=== PATIENT | female | born 1940 | race Caucasian/White ===

== ENCOUNTER 2019-03-08 12:52 | Emergency (ER) | payer MEDICARE ==
[2019-03-08 13:18] VITALS: BP 126/72; PULSE 77; RESP 18; TEMP 97.8
--- NOTE | 2019-03-08 14:17 | ED ---
ENT HPI - General Chief complaint: ENT Stated complaint: Nose swelling Time Seen by Provider: 03/08/19 13:47 Source: patient Mode of arrival: ambulatory Limitations: no limitations - History of Present Illness Initial comments: Patient is a 78-year-old female presenting to the emergency Department with complaints of left-sided nostril pain and swelling for the past 3 days. Patient denies any trauma or injuries to her nose. Patient denies fever, chills, nausea, vomiting. No previous history of facial surgeries. Patient has no other symptom past medical history. Patient states she does see an ENT intermittently for chronic sinus infections. Patient states this is not feeling that. Patient has no other complaints at this time. Upon arrival to ER, vital signs are stable. - Related Data Previous Rx's Medication Instructions Recorded Cephalexin [Keflex] 500 mg PO Q6HR 5 Days #20 cap 03/08/19 Allergies Allergy/AdvReac Type Severity Reaction Status Date / Time No Known Allergies Allergy Verified 03/08/19 13:18 Review of Systems ROS Statement: Those systems with pertinent positive or pertinent negative responses have been documented in the HPI. ROS Other: All systems not noted in ROS Statement are negative. Past Medical History Past Medical History: No Reported History History of Any Multi-Drug Resistant Organisms: None Reported Past Surgical History: Tonsillectomy Past Psychological History: No Psychological Hx Reported Smoking Status: Never smoker Past Alcohol Use History: None Reported Past Drug Use History: None Reported General Exam - General Exam Comments Initial Comments: GENERAL: Well-appearing, well-nourished and in no acute distress. HEAD: Atraumatic, normocephalic. EYES: Pupils equal round and reactive to light, extraocular movements intact, sclera anicteric, conjunctiva are normal. ENT: TMs normal, nares patent. Small pustule inside left nostril, mild surrounding edema of the left nostril and left upper cheek. No erythema. oropharynx clear without exudates. Moist mucous membranes. NECK: Normal range of motion, supple without lymphadenopathy or JVD. LUNGS: Breath sounds clear to auscultation bilaterally and equal. No wheezes rales or rhonchi. HEART: Regular rate and rhythm without murmurs, rubs or gallops. ABDOMEN: Soft, nontender, normoactive bowel sounds. No guarding, no rebound. No masses appreciated. : Deferred EXTREMITIES: Normal range of motion, no pitting or edema. No clubbing or cyanosis. NEUROLOGICAL: Cranial nerves II through XII grossly intact. Normal speech, normal gait. PSYCH: Normal mood, normal affect. SKIN: Warm, Dry, normal turgor, no rashes or lesions noted. Limitations: no limitations Course Vital Signs 03/08/19 03/08/19 13:15 14:29 Temperature 97.8 F 97.8 F Pulse Rate 77 77 Respiratory 18 18 Rate Blood Pressure 126/72 126/72 O2 Sat by Pulse 97 97 Oximetry Medical Decision Making - Medical Decision Making Patient is a 78-year-old female with complaints of left-sided nostril pain and mild swelling started 2 days ago. Patient denies fever, chills, trauma to her nose. Patient does see an ENT for chronic sinusitis but states this feels differently. On exam patient does have a pustule present on the inside left nostril as well as mild swelling on the outside of the left nose into the left orbit area. There is no erythema present on the face. There is some mild tenderness in the left nostril. We discussed with patient that her symptoms are secondary to a pustule in the nostril. Patient will be started on antibiotics to prevent infection. Patient will continue to use warm compresses to the nose and will follow up with ENT as needed if symptoms do not resolve. Patient is stable for discharge at this time and patient is in agreement with plan of care. Return parameters were discussed with the patient she verbalized understanding. Case discussed with physician. Disposition Clinical Impression: Pustule of nostril, Nasal pain Disposition: HOME SELF-CARE Condition: Stable Instructions (If sedation given, give patient instructions): Warm Compress or Soak (ED) Additional Instructions: Please return to the Emergency Department if symptoms worsen or any other concerns. Follow-up with ENT as discussed if symptoms persist. Take antibiotics as discussed. Use warm compresses on the nose as well. Prescriptions: Cephalexin [Keflex] 500 mg PO Q6HR 5 Days #20 cap Is patient prescribed a controlled substance at d/c from ED?: No Referrals: Isabel Farley MD [Primary Care Provider] - 1-2 days Sameer Lanza DO [REFERRING] - 1-2 days
== END 2019-03-08 14:32 | disposition home or self-care (01) ==
LOC: EC 12:52
DX: L08.9 Local infection of the skin and subcutaneous tissue, unspecified (principal); J34.89 Other specified disorders of nose and nasal sinuses; J32.9 Chronic sinusitis, unspecified
CPT/HCPCS: 99283

== ENCOUNTER 2021-12-17 11:04 | Inpatient (IN) | payer MEDICARE ==
[2021-12-17] MEDS ORDERED: ONDANSETRON 4 MG/2 ML VIAL IVP STA (11:39)
[2021-12-17] MEDS ORDERED: SODIUM CHLORIDE 0.9% 1,000 ML IV STA (11:39)
--- NOTE | 2021-12-17 12:09 | CT ---
EXAMINATION TYPE: CT brain wo con DATE OF EXAM: 12/17/2021 COMPARISON: None HISTORY: Dizziness, N/V CT DLP: 1099.4 mGycm Automated exposure control for dose reduction was used. FINDINGS: Mild to moderate generalized degenerative change. Low-attenuation in the white matter is nonspecific. No acute hemorrhage or mass effect. No midline shift. Calvarium is intact. Sinuses are clear. Orbits are symmetric. The sella turcica has a normal appearan ce. Craniocervical junction is maintained. IMPRESSION: DEGENERATIVE AND NONSPECIFIC WHITE MATTER CHANGES MOST TYPICAL OF REMOTE ISCHEMIA.
--- NOTE | 2021-12-17 12:30 | XR ---
EXAMINATION TYPE: XR chest 2V DATE OF EXAM: 12/17/2021 COMPARISON: None INDICATION: Dizziness and acute mental status changes TECHNIQUE: Frontal and lateral views of the chest are obtained. FINDINGS: The heart size is normal. The pulmonary vasculature is normal. The lungs are clear. IMPRESSION: 1. No acute pulmonary process.
[2021-12-17] MEDS: MECLIZINE 12.5 MG TAB PO STA ×2 (12:44→14:17)
[2021-12-17 12:54] LABS: Basophils # (A) 0.1 k/uL (0-0.2); Basophils % (A) 1 %; Eosinophils # (A) 0.1 k/uL (0-0.7); Eosinophils % (A) 1 %; HCT 42.6 % (34.0-46.0); HGB 14.3 gm/dL (11.4-16.0); Lymphocytes # (A) 0.9 k/uL (1.0-4.8); Lymphocytes % (A) 11 %; MCH 31.3 pg (25.0-35.0); MCHC 33.6 g/dL (31.0-37.0); MCV 92.9 fL (80.0-100.0); Mean Platelet Volume 7.6; Monocytes # (A) 0.4 k/uL (0-1.0); Monocytes % (A) 4 %; Neutrophils # (A) 7.2 k/uL (1.3-7.7); Neutrophils % (A) 83 %; Platelet Count 228 k/uL (150-450); RBC 4.59 m/uL (3.80-5.40); WBC 8.7 k/uL (3.8-10.6)
[2021-12-17 13:01] LABS: Albumin 3.9 g/dL (3.5-5.0); Potassium 4.3 mmol/L (3.5-5.1); Total Bilirubin 0.6 mg/dL (0.2-1.3); Total Protein 6.4 g/dL (6.3-8.2)
--- NOTE | 2021-12-17 13:12 | ED ---
General Adult HPI - General Chief complaint: Dizziness Stated complaint: Nausea,Vomiting Time Seen by Provider: 12/17/21 11:18 Source: patient, EMS, RN notes reviewed Mode of arrival: EMS Limitations: no limitations - History of Present Illness Initial comments: 81-year-old female presents emergency from via EMS chief complaint of dizziness. Patient woke up this morning sat up quickly states room a sprain. Patient states is very nauseated, feels weak. Family states that she seems to be lethargic. Patient does not have any confusion currently. Patient denies any chest pain shortness of breath she states she just very nauseated which makes her not want to move. Patient's had no fevers or chills no trauma. Denies any weakness of her arms, legs no chest pain no palpitations no abdominal discomfort. - Related Data Previous Rx's Medication Instructions Recorded Cephalexin [Keflex] 500 mg PO Q6HR 5 Days #20 cap 03/08/19 Allergies Allergy/AdvReac Type Severity Reaction Status Date / Time No Known Allergies Allergy Verified 03/08/19 13:18 Review of Systems ROS Statement: Those systems with pertinent positive or pertinent negative responses have been documented in the HPI. ROS Other: All systems not noted in ROS Statement are negative. Past Medical History Past Medical History: No Reported History History of Any Multi-Drug Resistant Organisms: None Reported Past Surgical History: Tonsillectomy Past Psychological History: No Psychological Hx Reported Smoking Status: Never smoker Past Alcohol Use History: None Reported Past Drug Use History: None Reported General Exam Limitations: no limitations General appearance: alert, in no apparent distress Head exam: Present: atraumatic, normocephalic, normal inspection Eye exam: Present: normal appearance, PERRL, EOMI. Absent: scleral icterus, conjunctival injection, periorbital swelling ENT exam: Present: normal exam, normal oropharynx, mucous membranes moist, TM's normal bilaterally Neck exam: Present: normal inspection, full ROM. Absent: tenderness, meningismus, lymphadenopathy Respiratory exam: Present: normal lung sounds bilaterally. Absent: respiratory distress, wheezes, rales, rhonchi, stridor Cardiovascular Exam: Present: regular rate, normal rhythm, normal heart sounds. Absent: systolic murmur, diastolic murmur, rubs, gallop, clicks Course Vital Signs 12/17/21 11:09 Temperature 97.6 F Pulse Rate 66 Respiratory 16 Rate Blood Pressure 181/92 O2 Sat by Pulse 98 Oximetry Medical Decision Making - Medical Decision Making 81-year-old female presented for severe dizziness, lethargy. Family states that she's not had her normal baseline. Patient is extremely dizzy unable to ambulate. Patient was given antiemetics, Antivert. Labs do not reveal any acute findings. CT shows possible remote ischemic changes. Patient will be admitted for neurology evaluation, rule out CVA. - Lab Data Result diagrams: 12/17/21 12:26 12/17/21 12:26 Lab Results 12/17/21 12/17/21 12/17/21 Range/Units 12:26 12:26 12:26 WBC 8.7 (3.8-10.6) k/uL RBC 4.59 (3.80-5.40) m/uL Hgb 14.3 (11.4-16.0) gm/dL Hct 42.6 (34.0-46.0) % MCV 92.9 (80.0-100.0) fL MCH 31.3 (25.0-35.0) pg MCHC 33.6 (31.0-37.0) g/dL RDW 13.0 (11.5-15.5) % Plt Count 228 (150-450) k/uL MPV 7.6 Neutrophils % 83 % Lymphocytes % 11 % Monocytes % 4 % Eosinophils % 1 % Basophils % 1 % Neutrophils # 7.2 (1.3-7.7) k/uL Lymphocytes # 0.9 L (1.0-4.8) k/uL Monocytes # 0.4 (0-1.0) k/uL Eosinophils # 0.1 (0-0.7) k/uL Basophils # 0.1 (0-0.2) k/uL Sodium 139 (137-145) mmol/L Potassium 4.3 (3.5-5.1) mmol/L Chloride 109 H (98-107) mmol/L Carbon Dioxide 24 (22-30) mmol/L Anion Gap 6 mmol/L BUN 21 H (7-17) mg/dL Creatinine 1.04 (0.52-1.04) mg/dL Est GFR (CKD-EPI)AfAm 58 (>60 ml/min/1.73 sqM) Est GFR (CKD-EPI)NonAf 50 (>60 ml/min/1.73 sqM) Glucose 142 H (74-99) mg/dL Calcium 9.0 (8.4-10.2) mg/dL Total Bilirubin 0.6 (0.2-1.3) mg/dL AST 24 (14-36) U/L ALT 14 (4-34) U/L Alkaline Phosphatase 95 (38-126) U/L Troponin I (0.000-0.034) ng/mL Total Protein 6.4 (6.3-8.2) g/dL Albumin 3.9 (3.5-5.0) g/dL Urine Color Light Yellow Urine Appearance Clear (Clear) Urine pH 6.5 (5.0-8.0) Ur Specific [place] 1.009 (1.001-1.035) Urine Protein Negative (Negative) Urine Glucose (UA) Negative (Negative) Urine Ketones Negative (Negative) Urine Blood Negative (Negative) Urine Nitrite Negative (Negative) Urine Bilirubin Negative (Negative) Urine Urobilinogen <2.0 (<2.0) mg/dL Ur Leukocyte Esterase Negative (Negative) Coronavirus (PCR) (Not Detectd) 12/17/21 12/17/21 Range/Units 12:26 12:26 WBC (3.8-10.6) k/uL RBC (3.80-5.40) m/uL Hgb (11.4-16.0) gm/dL Hct (34.0-46.0) % MCV (80.0-100.0) fL MCH (25.0-35.0) pg MCHC (31.0-37.0) g/dL RDW (11.5-15.5) % Plt Count (150-450) k/uL MPV Neutrophils % % Lymphocytes % % Monocytes % % Eosinophils % % Basophils % % Neutrophils # (1.3-7.7) k/uL Lymphocytes # (1.0-4.8) k/uL Monocytes # (0-1.0) k/uL Eosinophils # (0-0.7) k/uL Basophils # (0-0.2) k/uL Sodium (137-145) mmol/L Potassium (3.5-5.1) mmol/L Chloride (98-107) mmol/L Carbon Dioxide (22-30) mmol/L Anion Gap mmol/L BUN (7-17) mg/dL Creatinine (0.52-1.04) mg/dL Est GFR (CKD-EPI)AfAm (>60 ml/min/1.73 sqM) Est GFR (CKD-EPI)NonAf (>60 ml/min/1.73 sqM) Glucose (74-99) mg/dL Calcium (8.4-10.2) mg/dL Total Bilirubin (0.2-1.3) mg/dL AST (14-36) U/L ALT (4-34) U/L Alkaline Phosphatase (38-126) U/L Troponin I <0.012 (0.000-0.034) ng/mL Total Protein (6.3-8.2) g/dL Albumin (3.5-5.0) g/dL Urine Color Urine Appearance (Clear) Urine pH (5.0-8.0) Ur Specific [place] (1.001-1.035) Urine Protein (Negative) Urine Glucose (UA) (Negative) Urine Ketones (Negative) Urine Blood (Negative) Urine Nitrite (Negative) Urine Bilirubin (Negative) Urine Urobilinogen (<2.0) mg/dL Ur Leukocyte Esterase (Negative) Coronavirus (PCR) Not Detected (Not Detectd) Disposition Clinical Impression: Dizziness, Unable to ambulate, Altered mental status Disposition: ADMITTED IP TO THIS [facility] Condition: Fair Referrals: Isabel Farley MD [Primary Care Provider] - 1-2 days Time of Disposition: 13:45
[2021-12-17] MEDS ORDERED: SODIUM CHLORIDE 0.9% 500 ML 500 ML IV ONE (13:15)
[2021-12-17 13:39] LABS: Appearance,Urine Clear (Clear); Bilirubin,Urine Negative (Negative); Blood,Urine Negative (Negative); Color,Urine Light Yellow; Glucose,Urine (UA) Negative (Negative); Ketones,Urine Negative (Negative); Leukocyte Esterase,Urine Negative (Negative); Nitrite,Urine Negative (Negative); PH, Urine 6.5 (5.0-8.0); Protein,Urine Negative (Negative); Specific Gravity,Urine 1.009 (1.001-1.035); Urobilinogen,Urine <2.0 mg/dL (<2.0)
[2021-12-17] MEDS ORDERED: METOCLOPRAMIDE 5 MG/ML 2 ML VIAL IVP STA (13:43)
[2021-12-17] MEDS ORDERED: ONDANSETRON 4 MG/2 ML VIAL IVP PRN (13:48)
[2021-12-17] MEDS ORDERED: NALOXONE 0.4 MG/ML 1 ML VIAL IV PRN (13:48)
--- NOTE | 2021-12-17 15:22 | P.HPIM ---
History of Present Illness H&P Date: 12/17/21 Chief Complaint: Dizziness and nausea Patient is a 81-year-old female with no past medical history and does not take any meds who comes into the ED with complaints of dizziness. Patient stated that she woke up this morning feeling dizzy as if the room was spinning and also felt nauseous. Patient states that it is worse with movement and improves when she lays down still. In the ED patient was given Reglan, Antivert with no improvement in her symptoms. Patient was not able to ambulate in so she was referred for admission with neurology to evaluate. Review of Systems 10 ROS reviewed and are negative except as noted in HPI Past Medical History Past Medical History: No Reported History History of Any Multi-Drug Resistant Organisms: None Reported Past Surgical History: Tonsillectomy Past Psychological History: No Psychological Hx Reported Smoking Status: Never smoker Past Alcohol Use History: None Reported Past Drug Use History: None Reported Medications and Allergies Home Medications Medication Instructions Recorded Confirmed Type No Known Home Medications 12/17/21 12/17/21 History Allergies Allergy/AdvReac Type Severity Reaction Status Date / Time No Known Allergies Allergy Verified 12/17/21 14:22 Physical Exam Osteopathic Statement: *. No significant issues noted on an osteopathic structural exam other than those noted in the History and Physical/Consult. Vitals: Vital Signs Temp Pulse Resp BP Pulse Ox 12/17/21 14:10 53 L 15 144/80 12/17/21 13:30 153/83 12/17/21 13:00 118/77 100 12/17/21 12:30 96 12/17/21 12:00 138/75 12/17/21 11:30 139/80 95 12/17/21 11:09 97.6 F 66 16 181/92 98 Intake and Output 12/17/21 12/17/21 12/17/21 06:59 14:59 22:59 Other: Weight 54.431 kg General: [Alert and oriented, well nourished, no acute distress]. Eye: [PERRL, EOMI, normal conjunctiva]. HENT: [Normocephalic, clear tympanic membranes, normal hearing, moist oral mucosa, no scleral icterus, no sinus tenderness]. Neck: [Supple, non-tender, no carotid bruits, no JVD, no lymphadenopathy]. Lungs: [Clear to auscultation and percussion, non-labored respiration]. Heart: [Normal rate, regular rhythm, no murmur, gallop or edema]. Abdomen: [Soft, non-tender, non-distended, normal bowel sounds, no masses]. Musculoskeletal: [Normal range of motion and strength, no tenderness or swelling]. Skin: [Skin is warm, dry and pink, no rashes or lesions]. Neurologic: [Awake, alert, and oriented X3, CN II-XII intact]. Psychiatric: [Cooperative, appropriate mood and affect]. Results CBC & Chem 7: 12/17/21 12:26 12/17/21 12:26 Labs: Abnormal Lab Results - Last 24 Hours (Table) 12/17/21 12/17/21 Range/Units 12: 12:26 Lymphocytes # 0.9 L (1.0-4.8) k/uL Chloride 109 H (98-107) mmol/L BUN 21 H (7-17) mg/dL Glucose 142 H (74-99) mg/dL Assessment and Plan Assessment: Dizziness likely due to benign positional vertigo -CT head showed degenerative and nonspecific white matter changes most typical of remote ischemia but there were no acute findings -We'll start Medrol Dosepak -Consult neurology -Continue with Antivert when necessary -Consult PT for vestibular therapy Nausea likely due to dizziness -Symptomatic treatment with Zofran when necessary Hyperglycemia -Likely reactive -Check hemoglobin A1c -Trend BMP CODE STATUS:full code DVT prophylaxis: Subcu heparin Discussed with: Patient, ER, rn Anticipated length of stay > than [address]: home A total of 50 minutes was spent on the care of this complex patient more than 50% of the time was spent in counseling and care coordination.
[2021-12-17 15:58] VITALS: RESP 18
[2021-12-17] MEDS: methylPREDNISolone 4 MG TAB TAPER PO SCH (17:56)
--- NOTE | 2021-12-17 20:18 | US ---
EXAMINATION TYPE: US carotid duplex BILAT DATE OF EXAM: 12/17/2021 COMPARISON: NONE CLINICAL HISTORY: Vertigo. EXAM MEASUREMENTS: RIGHT: Peak Systolic Velocity (PSV) cm/sec ----- Right CCA: 79.3 ----- Right ICA: 102 ----- Right ECA: 63 ICA/CCA ratio: 1.2 RIGHT: End Diastole cm/sec ----- Right CCA: 13.6 ----- Right ICA: 26 ----- Right ECA: 0 LEFT: Peak Systolic Velocity (PSV) cm/sec ----- Left CCA: 74.7 ----- Left ICA: 68.9 ----- Left ECA: 53.3 ICA/CCA ratio: 0.8 LEFT: End Diastole cm/sec ----- Left CCA: 15.6 ----- Left ICA: 12.3 ----- Left ECA: 0 VERTEBRALS (direction of flow): Right Vertebral: Antegrade Left Vertebral: Antegrade Rhythm: Normal No significant stenosis seen IMPRESSION: Less than 50% stenosis of the bilateral carotid bifurcations. Criteria for Assigning % of Stenosis / Diameter reduction (Estimation based on the indirect measurements of the internal carotid artery velocities (ICA PSV). 1. Normal (no stenosis)=ICA PSV < 125 cm/s: ratio < 2.0: ICA EDV<40 cm/s. 2. Less than 50% stenosis=ICA PSV < 125 cm/s: ratio < 2.0: ICA EDV<40 cm/s. 3. 50 to 69% stenosis=ICA PSV of 125 to 230 cm/s: ration 2.0 ? 4.0: ICA EDV 40-100 cm/s. 4. Greater than 70% stenosis to near occlusion= ICA PSV > 230 cm/s: ratio > 4.0: ICA EDV > 100 cm/s. 5. Near occlusion= ICA PSV velocities may be low or undetectable: variable ratio and ICA EDV. 6. Total occlusion=unable to detect flow.
[2021-12-17] MEDS: MECLIZINE 25 MG TAB PO PRN (23:29)
[2021-12-17] MEDS: HEPARIN SODIUM,PORCINE/PF 5,000 UNIT/0.5 ML SYRINGE SQ SCH (23:33)
--- NOTE | 2021-12-18 03:14 | P.CNNES ---
History of Present Illness Consult date: 12/17/21 Requesting physician: Leland Sharma Reason for Consult: Intractable dizziness History of Present Illness: Patient is a 81-year-old right-handed female who woke up this morning at 9:30 AM with dizziness, vertigo, could not get out of bed. Patient states that she went to bed between midnight to 1 AM last night in usual state of health. This morning she woke up with dizziness/vertigo. When she moves, the dizziness is worse. Even laying there, she was feeling very dizzy. She had nausea but no vomiting. She has been quiet, not speaking much. No slurred speech or aphasia. Per patient's family, she has "dazed appearance". Patient's has noticed that she is "staring most of the time" since this morning. Patient denies any problem with the vision, no recent upper respiratory infection. She does have chronic sinus and ALLERGIES which is normal for her and nothing worse lately. She denies any focal numbness, tingling, weakness, facial droop or headache. No vertigo. She has occasional tinnitus, nothing worse lately. No loss of hearing, no pain or pressure in the ears. Patient denies hypertension, diabetes. She has never smoked, does not drink alcohol. She has not seen PCP for over 20 years. Patient denies starting any new medication. She believes her symptoms are somewhat getting better. Patient denies any recent vaccinations. Patient denies any previous history of vertigo or dizziness. Patient's blood test shows normal CBC, normal CMP, troponin negative. UA negative, berumen virus negative. Patient had a computed tomography scan of head, which is normal. Shows degenerative and nonspecific white matter changes, most typical of remote ischemia. I personally reviewed CT head and agree with the findings. Mild small vessel disease. Visualized paranasal sinuses are clear. EAC revealed moderate cerumen in the right ear. EKG shows sinus rhythm. Chest x-ray no acute process. Review of Systems Guilherme 14 points of review systems reviewed, remarkable except as mentioned in HPI. No fever or chills. Past Medical History Past Medical History: No Reported History History of Any Multi-Drug Resistant Organisms: None Reported Past Surgical History: Tonsillectomy Past Psychological History: No Psychological Hx Reported Smoking Status: Never smoker Past Alcohol Use History: None Reported Past Drug Use History: None Reported - Past Family History Father Family Medical History: Cancer, Coronary Artery Disease (CAD) Additional Family Medical History / Comment(s): colon cancer Medications and Allergies Home Medications Medication Instructions Recorded Confirmed Type No Known Home Medications 12/17/21 12/17/21 History Allergies Allergy/AdvReac Type Severity Reaction Status Date / Time No Known Allergies Allergy Verified 12/17/21 14:22 Physical Examination - Vital Signs Vital Signs: Vital Signs Temp Pulse Pulse Resp BP BP Pulse Ox 12/17/21 20:00 97.5 F L 64 18 131/80 98 12/17/21 15:54 97.6 F 54 L 18 128/92 97 12/17/21 14:10 53 L 15 144/80 12/17/21 13:30 153/83 12/17/21 13:00 118/77 100 12/17/21 12:30 96 12/17/21 12:00 138/75 12/17/21 11:30 139/80 95 12/17/21 11:09 97.6 F 66 16 181/92 98 Intake and Output 12/17/21 12/17/21 12/18/21 14:59 22:59 06:59 Output Total 0 Balance 0 Output: Urine 0 Other: Voiding Method Toilet # Voids 1 # Bowel Movements 0 Weight 54.431 kg 54.431 kg Patient is an elderly female, in no acute distress. Patient is alert awake oriented to time place and person. Speech and language functions are normal. Attention, concentration and fund of knowledge is adequate. On cranial examination, pupils are equal, round and reacting to light, visual truong are full on confrontation with no neglect on double simultaneous stimulation, extraocular muscles are intact with no nystagmus. Face is s ymmetric, tongue protrudes to the midline. Palatal elevation and sensation normal, hearing is moderately decreased for finger rubbing bilaterally, but normal for usual conversation. Her facial sensation normal. Shoulder shrug normal. On neurologic examination revealed significant cerumen blockage on the right, but clear on the left. On muscle strength testing, there is no pronator drift and the strength is normal in arms and legs distally and proximally. Deep tendon reflexes are symmetric, 2+ in the upper limbs at biceps and brachioradialis, 2+ to 3 at the knees, 2+ ankles and plantars downgoing bilaterally. Sensory to touch is equal with no neglect. Cerebellar function showed very mild, questionable ataxia for [id number] on the left. Tone and bulk of muscles normal. Gait deferred. On general examination, there is no carotid bruit or murmur, S1-S2 audible. Abdomen is soft nontender. Chest is clear. Peripheral pulses are present. No edema. Results - Laboratory Findings CBC and BMP: 12/17/21 12:26 12/17/21 12:26 Abnormal Lab Findings: Abnormal Labs 12/17/21 12/17/21 12:26 12:26 Lymphocytes # 0.9 L Chloride 109 H BUN 21 H Glucose 142 H Assessment and Plan Assessment: * Acute onset of vertigo on waking up since this morning. Symptoms have improved, but not gone. Her dizziness is persisting even when she is at rest. Possible labyrinthitis, rule out TIA. * Cerumen impaction right ear. Plan: * MRI, rule out secondary causes of vertigo. * Antivert as needed. * Carotid Doppler to rule out stenosis. * Aspirin 81 mg daily. * B12, folate * Suggest removing the wax impacted from the right ear. * Dr. Israel Ahmadi will resume neurology service in the morning. Thank you for the consult.
[2021-12-18] MEDS: HEPARIN SODIUM,PORCINE/PF 5,000 UNIT/0.5 ML SYRINGE SQ SCH ×3 (08:20→21:23)
[2021-12-18] MEDS: ASPIRIN 81 MG PO SCH (08:20)
[2021-12-18] MEDS: methylPREDNISolone 4 MG TAB TAPER PO SCH (08:21)
--- NOTE | 2021-12-18 10:48 | MR ---
EXAMINATION TYPE: MR brain wo con DATE OF EXAM: 12/18/2021 10:16 AM COMPARISON: CT brain on 12/17/2021. CLINICAL INDICATION:Female, 81 years old with history of Vertigo, rule out cerebellar TIA/CVA; TECHNIQUE: Multi planar, multi sequence imaging was performed through the brain including: No gadolin ium was given. FINDINGS: The witt-white junctions, ventricular system, and cisterns appear unremarkable. Scattered foci of hi gh T2 signal intensity are seen within the deep and periventricular white matter. Midline structures show no abnormality. Diffusion-weighted imaging shows no evidence of restricted diffusion. The bone marrow signal is within normal limits. The paranasal sinuses and globes are unremarkable. IMPRESSION: 1. No evidence of intracranial mass or acute/subacute infarct. 2. Nonspecific white matter changes, likely secondary to small vessel ischemic disease.
--- NOTE | 2021-12-18 12:26 | P.PN ---
Subjective Progress Note Date: 12/18/21 Principal diagnosis: Benign positional vertigo Patient states that her dizziness is improving. Patient had carotid Dopplers done yesterday was unremarkable. Patient also had an MRI done this morning that was negative for any acute findings. Patient states that she still does not feel safe ambulating. She states that she cannot walk to the bathroom. I discussed with nurse about paging physical therapy to assess patient. Objective - Vital Signs Vital signs: Vital Signs Temp 97.9 F 12/18/21 06:13 Pulse 66 12/18/21 06:13 Resp 18 12/18/21 06:13 BP 115/66 12/18/21 06:13 Pulse Ox 97 12/18/21 06:13 FiO2 Intake & Output 12/17/21 12/18/21 12/18/21 18:59 06:59 18:59 Intake Total 300 Output Total 0 Balance 300 Weight 54.431 kg Intake: Oral 300 Output: Urine 0 Other: Voiding Method Toilet Toilet Bedside Commode # Voids 1 3 1 # Bowel Movements 0 - Exam General examination - Alert and Oriented 3 in NAD Heart - + S1S2 no murmurs Lungs - Clear to auscultation Abdomen soft NT ND +ve BS Extremities - No edema PEDIATRIC PSYCHIATRIST - Moving all 4 extremities spontaneously Psych - Calm and cooperative - Labs CBC & Chem 7: 12/17/21 12:26 12/17/21 12:26 Labs: Abnormal Lab Results - Last 24 Hours (Table) 12/17/21 12/17/21 Range/Units 12:26 12:26 Lymphocytes # 0.9 L (1.0-4.8) k/uL Chloride 109 H (98-107) mmol/L BUN 21 H (7-17) mg/dL Glucose 142 H (74-99) mg/dL Assessment and Plan Assessment: Dizziness likely due to benign positional vertigo -CT head showed degenerative and nonspecific white matter changes most typical of remote ischemia but there were no acute findings -We'll start Medrol Dosepak -Consult neurology -Continue with Antivert when necessary -Consult PT for vestibular therapy -Improving however patient states that she still not able to ambulate to bathroom Nausea likely due to dizziness -Symptomatic treatment with Zofran when necessary Right ear impacted with earwax -We'll start eardrops -Doubt this is the cause for her dizziness -Outpatient follow-up with ENT Hyperglycemia -Likely reactive -Hemoglobin A1c is 5.6 CODE STATUS:full code DVT prophylaxis: Subcu heparin Anticipated length of stay > than [address]: home SNF
[2021-12-18] MEDS: CARBAMIDE PEROXIDE 6.5% DROPS 15 ML BTL BOTH EARS SCH ×2 (13:48→21:23)
[2021-12-18] MEDS ORDERED: CYANOCOBALAMIN 1,000 MCG/ML 1 ML VIAL IM ONE (17:00)
[2021-12-18] MEDS: MECLIZINE 25 MG TAB PO PRN (18:16)
[2021-12-19 05:14] VITALS: BP 159/71; PULSE 64; TEMP 97.6
[2021-12-19] MEDS ORDERED: CYANOCOBALAMIN 500 MCG TAB PO SCH (09:00)
[2021-12-19] MEDS: ASPIRIN 81 MG PO SCH (09:01)
[2021-12-19] MEDS: methylPREDNISolone 4 MG TAB TAPER PO SCH (09:01)
[2021-12-19] MEDS: MECLIZINE 25 MG TAB PO PRN (09:09)
[2021-12-19] MEDS: CARBAMIDE PEROXIDE 6.5% DROPS 15 ML BTL BOTH EARS SCH (09:11)
[2021-12-19] MEDS: HEPARIN SODIUM,PORCINE/PF 5,000 UNIT/0.5 ML SYRINGE SQ SCH (09:11)
--- NOTE | 2021-12-19 12:27 | P.DS ---
Providers Date of admission: 12/17/21 13:48 Expected date of discharge: 12/19/21 Attending physician: Lisa Johnston MD Consults: 12/17/21 13:48 Consult Physician Urgent Consulting Provider: Cristina Haley Consult Reason/Comments: Intractable dizziness Do you want consulting provider notified?: Yes Primary care physician: Isabel [facility] Course: Discharge Diagnosis: Benign positional vertigo Nausea likely due to dizziness Hyperglycemia likely reactive Hospital Course: Patient is a 81-year-old female with no past medical history and does not take any meds who comes into the ED with complaints of dizziness. Patient stated that she woke up this morning feeling dizzy as if the room was spinning and also felt nauseous. Patient states that it is worse with movement and improves when she lays down still. Patient's symptoms are consistent with benign positional vertigo. She was started on Antivert and steroids. She also had an MRI that was negative for any acute process. Carotids were negative for significant stenosis. At the time of discharge patient will go physical therapy who cleared her for discharge with a walker. Patient provided for a prescription for walker as well as outpatient vestibular therapy. Patient seen and examined at bedside.[] Vital signs reviewed and stable. General: [non toxic], [no distress], [appears at stated age] Derm: [warm], [dry] Head: [atraumatic], [normocephalic], [symmetric] Eyes: [EOMI], [no lid lag], [anicteric sclera] Mouth: [no lip lesion], [mucus membranes moist] Cardiovascular: [S1S2 reg], [no murmur], [positive posterior tibial pulse bilateral], Lungs: [CTA bilateral], [no rhonchi, no rales] , [no accessory muscle use] Abdominal: [soft], [ nontender to palpation], [no guarding], [no appreciable organomegaly] Ext: [no gross muscle atrophy], [no edema], [no contractures] Neuro: [ CN II-XI grossly intact], [no focal neuro deficits] Psych: [Alert], [oriented], [appropriate affect] A total of [33] minutes of time were spent preparing this complex discharge summary . Patient Condition at Discharge: Fair Plan - Discharge Summary Discharge Rx Participant: No New Discharge Prescriptions: New Meclizine [Antivert] 25 mg PO QID PRN 7 Days #28 tab PRN Reason: Vertigo methylPREDNISolone [Medrol Dose Pack] 0 mg PO DIRECTED #1 packet Discharge Medication List Meclizine [Antivert] 25 mg PO QID PRN 7 Days #28 tab 12/19/21 [Rx] methylPREDNISolone [Medrol Dose Pack] 0 mg PO DIRECTED #1 packet 12/19/21 [Rx] Follow up Appointment(s)/Referral(s): Isabel Farley MD [Primary Care Provider] - 1-2 days Discharge Disposition: HOME SELF-CARE
--- NOTE | 2021-12-19 13:33 | P.PN ---
Subjective Progress Note Date: 12/19/21 I am seeing the patient for the first time during this admission. Please refer to Dr. Haley's note for further details. It seems the patient has been having dizziness and it is positional. Denies nausea, vomiting, focal weakness, ringing of ears. She had MRI Brain and no acute or subacute ischemic stroke. Carotid duplex is less than 50% stenosis bilateral carotid bifurcation. Vitamin B12 is 224 with a severely low normal and the folate is 10.2. Hemoglobin A1c is 5% 6 Objective - Vital Signs Vital signs: Vital Signs Temp 97.6 F 12/19/21 05:00 Pulse 64 12/19/21 05:00 Resp 18 12/19/21 05:00 BP 159/71 12/19/21 05:00 Pulse Ox 98 12/19/21 05:00 FiO2 21 12/18/21 20:30 Intake & Output 12/18/21 12/19/21 12/19/21 18:59 06:59 18:59 Intake Total 300 Output Total 0 Balance 300 Intake: Oral 300 Output: Urine 0 Other: Voiding Method Toilet Toilet Bedpan Bedside Commode Bedside Commode # Voids 2 2 - Exam GENERAL: The patient is lying in bed and is not in acute distress. NEUROLOGICAL: Higher mental function: The patient is awake, alert, oriented to self, place and time. Patient is following commands. No aphasia and no neglect. Cranial nerves: The pupils are round, equal and reactive to light. Visual fi elds are full to confrontation throughout. Extraocular movement is intact no nystagmus is noted. The facial strength is normal throughout. No dysarthria is noted. Motor: The strength is 5 over 5 throughout. Normal tone and bulk. Cerebellum: Normal finger to nose bilaterally. - Labs CBC & Chem 7: 12/17/21 12:26 12/17/21 12:26 Assessment and Plan Assessment: * Acute onset of vertigo on waking up since this morning. Symptoms have improved, but not gone. Her dizziness is persisting even when she is at rest. Seems probable labyrinthitis. No stroke on MRI Brain. * Cerumen impaction right ear. * Severe low normal Vitamin B12 Plan: * Antivert as needed. * Suggest removing the wax impacted from the right ear. * Because of the severe low normal vitamin B12 the patient was given vitamin B12 1000 g IM once there was started on the bottom B12 1000 g by mouth. * Recommend the patient the to be evaluated by ENT and possible consider vestibular rehab therapy as an outpatient if continues to have dizziness. There is no further neurological workup. Israel Ahmadi M.D. Neuro-hospitalist Time with Patient: Less than 30
== END 2021-12-19 14:10 | disposition home or self-care (01) | DRG 149 ==
LOC: EC 11:04 → 5NMEDONC 13:48
PROVIDERS: ADMIT Internal Medicine; ATTEND Internal Medicine
DX: H81.10 Benign paroxysmal vertigo, unspecified ear (principal); R53.1 Weakness; I65.23 Occlusion and stenosis of bilateral carotid arteries; E53.8 Deficiency of other specified B group vitamins; Z20.822 Contact with and (suspected) exposure to COVID-19; H93.19 Tinnitus, unspecified ear; H61.21 Impacted cerumen, right ear; H83.09 Labyrinthitis, unspecified ear; R73.9 Hyperglycemia, unspecified; Z90.89 Acquired absence of other organs; Z80.0 Family history of malignant neoplasm of digestive organs; Z82.49 Family history of ischemic heart disease and other diseases of the circulatory system
CPT/HCPCS: 36415; 70450; 70551; 71046; 80053; 81003; 82607; 82746; 83036; 84484; 85025; 87635; 93005; 93880; 94760; 96361; 96374; 96375; 99285